=== PATIENT | female | born 1965 | race Caucasian/White ===

== ENCOUNTER 2021-10-05 08:16 | Outpatient (CLI) | payer MEDICAID, SELFPAY ==
--- NOTE | 2021-10-05 08:35 | MM_ITS ---
WS: [id number] BILATERAL SCREENING 3D TOMOSYNTHESIS DIGITAL MAMMOGRAM WITH CAD HISTORY: SCREENING COMPARISON: None available. Bilateral CC and MLO views submitted. Computer aided detection analyzed. Breast composition: There are scattered areas of fibroglandular density. No suspicious masses, microc alcifications or architectural distortion. Benign calcifications. No masses. MM/[place] [id number] IMPRESSION: BI-RADS: 2-Benign FOLLOW UP: 1 Year Follow-up
== END 2021-10-05 08:17 | disposition home or self-care (01) ==
LOC: RAD 08:20
PROVIDERS: PCP Family Medicine; Visit Provider Family Medicine
DX: Z12.31 Encounter for screening mammogram for malignant neoplasm of breast (principal)
CPT/HCPCS: 77063; 77067

== ENCOUNTER → 2021-11-21 09:04 | Outpatient (BNVA) | payer MEDICAID, SELFPAY | PROVIDERS: PCP Nurse Practitioner Family; Visit Provider Nurse Practitioner Family | DX: E11.9 Type 2 diabetes mellitus without complications (principal); I10 Essential (primary) hypertension | CPT/HCPCS: 80053; 80061; 83036; 84443; 85025 ==

== ENCOUNTER → 2021-12-11 08:51 | Outpatient (BNVA) | payer MEDICAID, SELFPAY | PROVIDERS: PCP Nurse Practitioner Family; Visit Provider Nurse Practitioner | DX: M25.531 Pain in right wrist (principal); M25.521 Pain in right elbow | CPT/HCPCS: 73080; 73110 ==

== ENCOUNTER → 2022-01-28 08:53 | Outpatient (BNVA) | payer MEDICAID, SELFPAY | PROVIDERS: PCP Nurse Practitioner Family; Visit Provider Nurse Practitioner Family | DX: E11.9 Type 2 diabetes mellitus without complications (principal); G47.00 Insomnia, unspecified; F41.9 Anxiety disorder, unspecified; E78.5 Hyperlipidemia, unspecified; E11.65 Type 2 diabetes mellitus with hyperglycemia; I10 Essential (primary) hypertension; S52.123A Displaced fracture of head of unspecified radius, initial encounter for closed fracture | CPT/HCPCS: 80061; 83036 ==

== ENCOUNTER → 2022-05-02 08:20 | Outpatient (BNVA) | payer MEDICAID, SELFPAY | PROVIDERS: PCP Nurse Practitioner Family; Visit Provider Nurse Practitioner | DX: I10 Essential (primary) hypertension (principal); E11.65 Type 2 diabetes mellitus with hyperglycemia; Z79.4 Long term (current) use of insulin | CPT/HCPCS: 80053; 80061; 83036 ==

== ENCOUNTER → 2022-05-06 09:24 | Outpatient (BNVA) | payer MEDICAID, SELFPAY | PROVIDERS: PCP Nurse Practitioner Family; Visit Provider Nurse Practitioner | DX: E11.9 Type 2 diabetes mellitus without complications (principal); F41.9 Anxiety disorder, unspecified; G47.00 Insomnia, unspecified; I10 Essential (primary) hypertension; E11.65 Type 2 diabetes mellitus with hyperglycemia; Z79.4 Long term (current) use of insulin | CPT/HCPCS: 81000 ==

== ENCOUNTER → 2022-07-29 08:31 | Outpatient (BNVA) | payer MEDICAID, SELFPAY | PROVIDERS: PCP Nurse Practitioner Family; Visit Provider Nurse Practitioner | DX: Z79.4 Long term (current) use of insulin (principal); E11.65 Type 2 diabetes mellitus with hyperglycemia | CPT/HCPCS: 80053; 80061; 83036 ==

== ENCOUNTER → 2022-08-05 08:14 | Outpatient (BNVA) | payer MEDICAID, SELFPAY | PROVIDERS: PCP Nurse Practitioner; Visit Provider Nurse Practitioner | DX: E11.65 Type 2 diabetes mellitus with hyperglycemia (principal); Z79.4 Long term (current) use of insulin | CPT/HCPCS: 81000 ==

== ENCOUNTER → 2022-08-05 09:15 | Outpatient (BNVA) | payer MEDICAID, SELFPAY | PROVIDERS: PCP Nurse Practitioner; Visit Provider Nurse Practitioner | DX: E11.65 Type 2 diabetes mellitus with hyperglycemia (principal); Z79.4 Long term (current) use of insulin; G47.00 Insomnia, unspecified; I10 Essential (primary) hypertension; F41.9 Anxiety disorder, unspecified; Z78.0 Asymptomatic menopausal state | CPT/HCPCS: 71046 ==

== ENCOUNTER → 2022-10-24 07:50 | Outpatient (BNVA) | payer MEDICAID, SELFPAY | PROVIDERS: PCP Nurse Practitioner; Visit Provider Nurse Practitioner | DX: E11.65 Type 2 diabetes mellitus with hyperglycemia (principal); Z79.4 Long term (current) use of insulin | CPT/HCPCS: 80053; 80061; 83036 ==

== ENCOUNTER → 2022-10-28 09:40 | Outpatient (BNVA) | payer MEDICAID, SELFPAY | PROVIDERS: PCP Nurse Practitioner; Visit Provider Nurse Practitioner | DX: E11.65 Type 2 diabetes mellitus with hyperglycemia (principal); G47.00 Insomnia, unspecified; M79.2 Neuralgia and neuritis, unspecified; I10 Essential (primary) hypertension; Z98.890 Other specified postprocedural states; F41.9 Anxiety disorder, unspecified; R00.0 Tachycardia, unspecified; Z79.4 Long term (current) use of insulin | CPT/HCPCS: 81000 ==

== ENCOUNTER → 2022-10-29 15:54 | Outpatient (BNVA) | payer MEDICAID, SELFPAY | PROVIDERS: PCP Nurse Practitioner; Visit Provider Podiatrist Foot & Ankle Surgery | DX: S82.832A Other fracture of upper and lower end of left fibula, initial encounter for closed fracture (principal); W19.XXXA Unspecified fall, initial encounter; E11.65 Type 2 diabetes mellitus with hyperglycemia; Z79.4 Long term (current) use of insulin | CPT/HCPCS: 73610 ==

== ENCOUNTER 2022-10-29 16:22 | Outpatient (CLI) | payer MEDICAID, SELFPAY | END 2022-10-29 16:23 | disposition home or self-care (01) | LOC: SPT 16:23 | PROVIDERS: PCP Nurse Practitioner; Visit Provider Podiatrist Foot & Ankle Surgery | DX: Z46.89 Encounter for fitting and adjustment of other specified devices (principal); S82.892D Other fracture of left lower leg, subsequent encounter for closed fracture with routine healing; X58.XXXD Exposure to other specified factors, subsequent encounter | CPT/HCPCS: 97760; 99204; L1902 ==

== ENCOUNTER 2022-11-11 12:02 | Outpatient (CLI) | payer MEDICAID, SELFPAY ==
--- NOTE | 2022-11-11 12:07 | XR_ITS ---
WS: [email or web address] SCREENING DEXA SCAN [employer] CLINICAL INFORMATION: Z78.0 - Asymptomatic menopausal state FINDINGS: The L1-L4 bone mineral density measures 0.864 g/cm2. This corresponds to a T score score of -2.6 and Z score of -1.8. Left femoral neck bone mineral density measures 0.928 g/cm2. This corresponds to a T score of -0.6 an d Z score of 0.0. Right femoral neck bone mineral density measures 0.908 g/cm2. This corresponds to a T score -0.8of an d Z score of -0.1. Mean femoral neck bone mineral density measures 0.918 g/cm2. This corresponds to a T score of -0.7 an d Z score of 0.0. XR/XR DEXA axial skeleton* [id number] IMPRESSION: Osteoporosis lumbar spine. Normal bone mineralization femoral necks. Patient's FRAX calculated 10 year probability for major osteoporotic fracture i s 5.5 % and osteoporotic hip fracture is 0.2%.
--- NOTE | 2022-11-11 12:07 | MM_ITS ---
WS: [email or web address] BILATERAL 3D TOMOSYNTHESIS DIGITAL SCREENING MAMMOGRAPHY WITH CAD CLINICAL INFORMATION: Z12.39 - Encounter for other screening for malignant neop... HISTORY: Screening mammogram. No current complaints. COMPARISON: October 05, 2021 TECHNIQUE: Bilateral CC and MLO views. FINDINGS: Scattered fibroglandular densities bilaterally. Progressed asymmetric density inferior quadrant LEFT breast along the posterior nipple line measuring 9 mm. This is only well visualized on the MLO view. Recommend spot compression views and ultrasound if persistent. Punctate and lucent centered calcifications. RIGHT breast is unchanged. MM/[place] [id number] IMPRESSION: BI-RADS: 0-Incomplete: Need additional imaging evaluation FOLLOW UP: Need Additional Imaging Recommend LEFT breast diagnostic mammography with spot compression views and ul trasound if persistent.
== END 2022-11-11 12:03 | disposition home or self-care (01) ==
LOC: RAD 12:04
PROVIDERS: PCP Nurse Practitioner; Visit Provider Nurse Practitioner
DX: Z12.31 Encounter for screening mammogram for malignant neoplasm of breast (principal); Z13.820 Encounter for screening for osteoporosis; M81.8 Other osteoporosis without current pathological fracture; Z78.0 Asymptomatic menopausal state
CPT/HCPCS: 77063; 77067; 77080

== ENCOUNTER → 2022-11-13 15:17 | Outpatient (BNVA) | payer MEDICAID, SELFPAY | PROVIDERS: PCP Nurse Practitioner; Visit Provider Podiatrist Foot & Ankle Surgery | DX: S82.832A Other fracture of upper and lower end of left fibula, initial encounter for closed fracture (principal); W19.XXXA Unspecified fall, initial encounter; E11.65 Type 2 diabetes mellitus with hyperglycemia; Z79.4 Long term (current) use of insulin | CPT/HCPCS: 73610; 99213 ==

== ENCOUNTER 2022-12-09 13:37 | Outpatient (CLI) | payer MEDICAID, SELFPAY ==
--- NOTE | 2022-12-09 13:45 | MM_ITS ---
WS: [id number] LEFT 3D TOMOSYNTHESIS DIGITAL MAMMOGRAPHY WITH CAD CLINICAL INFORMATION: ABNORMAL MAMMO HISTORY: Additional views COMPARISON: November 11, 2022 TECHNIQUE: 2 views of the left breast were obtained. FINDINGS: Scattered fibroglandular densities of the left breast. Persistent 8-9 mm ovoid density lower inner quadrant LEFT breast. Ultrasound described below. ULTRASOUND BREAST LEFT TECHNIQUE: Ultrasound left breast focused area of concern. CLINICAL INFORMATION: ABNORMAL MAMMO FINDINGS: Ultrasound LEFT breast 6 to 9:00 position. No suspicious abnormalities. Incidental simple cyst at the 6 clock position measuring 3.5 x 4.8 x 2.8 mm. No suspicious lesions to target for biopsy. Recommend return to annual screening mammography. MM/[place] [id number] IMPRESSION: BI-RADS: 2-Benign FOLLOW UP: 1 Year Follow-up Recommend return to annual screening mammography.
== END 2022-12-09 13:38 | disposition home or self-care (01) ==
PROVIDERS: PCP Nurse Practitioner; Visit Provider Nurse Practitioner
DX: R92.8 Other abnormal and inconclusive findings on diagnostic imaging of breast (principal); N60.02 Solitary cyst of left breast
CPT/HCPCS: 76642; 77061; G0279

== ENCOUNTER → 2023-01-16 08:02 | Outpatient (BNVA) | payer MEDICAID, SELFPAY | PROVIDERS: PCP Nurse Practitioner; Visit Provider Nurse Practitioner | DX: E11.65 Type 2 diabetes mellitus with hyperglycemia (principal); Z79.4 Long term (current) use of insulin | CPT/HCPCS: 80053; 80061; 81000; 83036; 84443 ==

== ENCOUNTER → 2023-04-09 08:03 | Outpatient (BNVA) | payer MEDICAID, SELFPAY | PROVIDERS: PCP Nurse Practitioner; Visit Provider Nurse Practitioner | DX: E11.65 Type 2 diabetes mellitus with hyperglycemia (principal); Z79.4 Long term (current) use of insulin | CPT/HCPCS: 80053; 80061; 81000; 83036; 84443; 85025 ==

== ENCOUNTER → 2023-07-04 08:57 | Outpatient (BNVA) | payer MEDICAID, SELFPAY | PROVIDERS: PCP Nurse Practitioner; Visit Provider Nurse Practitioner | DX: E11.65 Type 2 diabetes mellitus with hyperglycemia (principal); Z79.4 Long term (current) use of insulin; I10 Essential (primary) hypertension; E78.5 Hyperlipidemia, unspecified | CPT/HCPCS: 80053; 80061; 83036; 84443 ==

== ENCOUNTER → 2023-07-08 09:25 | Outpatient (BNVA) | payer MEDICAID, SELFPAY | PROVIDERS: PCP Nurse Practitioner; Visit Provider Nurse Practitioner | DX: E11.65 Type 2 diabetes mellitus with hyperglycemia; Z79.4 Long term (current) use of insulin; M81.0 Age-related osteoporosis without current pathological fracture; F41.9 Anxiety disorder, unspecified; G47.00 Insomnia, unspecified; R00.0 Tachycardia, unspecified; I10 Essential (primary) hypertension; M79.2 Neuralgia and neuritis, unspecified; E03.8 Other specified hypothyroidism; M25.521 Pain in right elbow; G89.29 Other chronic pain | CPT/HCPCS: 81000 ==

== ENCOUNTER → 2023-09-25 07:57 | Outpatient (BNVA) | payer MEDICAID, SELFPAY | PROVIDERS: PCP Nurse Practitioner; Visit Provider Nurse Practitioner | DX: E03.8 Other specified hypothyroidism (principal); E11.65 Type 2 diabetes mellitus with hyperglycemia; Z79.4 Long term (current) use of insulin; E11.9 Type 2 diabetes mellitus without complications; Z79.899 Other long term (current) drug therapy | CPT/HCPCS: 80053; 80061; 81000; 83036; 84443; 85025 ==

== ENCOUNTER 2023-10-09 20:01 | Emergency (ER) | payer MEDICAID, SELFPAY ==
[2023-10-09 20:11] VITALS: BP 108/73; PULSE 99; RESP 14; TEMP 36.4; O2SAT 99
[2023-10-09 20:42] LABS: Basophils # 0.1 10^3/uL (0.0-0.1); Basophils % 0.4 %; Eosinophils % 0.1 %; Hematocrit 43.1 % (36-47); Lymphocytes # 1.9 10^3/uL (0.8-4.8); Lymphocytes % 12.8 %; Mean Corpuscular HGB Conc 33.9 g/dL (30-55); Mean Corpuscular Volume 88.7 fl (85-98); Mean Platelet Volume 9.7 fL (7.4-10.4); Monocytes % 6.7 %; Neutrophils # 12.03 10^3/uL (1.8-7.7); Neutrophils % 79.7 %; Nucleated Red Blood Cells % 0 %; Platelet Count 357 10^3/cmm (157-399); Red Blood Count 4.86 10^6/uL (3.85-5.65); Red Cell Distribution Width 13.8 % (12.1-15.1); White Blood Count 15.09 10^3/uL (3.29-11.43)
[2023-10-09] MEDS: ondansetron 2 mg/ML SDV 2 mL 4 MG IVP (20:50)
[2023-10-09 20:59] LABS: Alanine Aminotransferase 15 U/L (0-33); Albumin Level 4.3 g/dL (3.5-5.2); Alkaline Phosphatase 94 U/L (35-105); Anion Gap 17.8 (5-19); Aspartate Amino Transferase 19 U/L (0-32); Blood Urea Nitrogen 16 mg/dL (6-20); Calcium 9.7 mg/dL (8.5-10.5); Carbon Dioxide 22 mmol/L (22-29); Chloride 103 mmol/L (98-107); Creatinine Clr Calc Pharmacy 61.7002; Globulin 3.9 g/dL (1.3-4.6); Glucose 166 mg/dL (65-115); Lipase 44 U/L (13-60); Osmolality Calculated 293 mOsm/kg (285-295); Potassium 3.8 mmol/L (3.5-5.1); Sodium 139 mmol/L (136-145); Total Bilirubin 0.4 mg/dL (0.15-1.2); Total Protein 8.2 g/dL (6.6-8.7)
[2023-10-09 21:01] VITALS: BP 102/72; PULSE 90; RESP 16; O2SAT 95
--- NOTE | 2023-10-09 21:22 | CTR_ITS ---
PROCEDURE INFORMATION: Exam: CT Abdomen And Pelvis Without Contrast Exam date and time: 10/09/2023 9:28 PM Age: 57 years old Clinical indication: Abdominal pain; Flank; Right; Prior surgery; Surgery date: 6+ months; Surgery type: Tubal; Additional info: Right flank pain TECHNIQUE: Imaging protocol: Computed tomography of the abdomen and pelvis without contrast. Radiation optimization: All CT scans at this facility use at least one of these dose optimization techniques: automated exposure control; mA and/or kV adjustment per patient size (includes targeted exams where dose is matched to clinical indication); or iterative reconstruction. COMPARISON: CR XR chest 2V* [id number] 08/05/2022 9:17 AM RADIATION DOSE METRICS: Total DLP (mGy-cm): 348.37 FINDINGS: Liver: Normal. No mass. Gallbladder and bile ducts: Normal. No calcified stones. No ductal dilation. Pancreas: Normal. No ductal dilation. Spleen: Normal. No splenomegaly. Adrenal glands: Normal. No mass. Kidneys and ureters: There is a 0.7 cm calcification in the distal right ureter resulting in moderate right hydroureteronephrosis. There is edema of the right kidney. No hydronephrosis on the left. Stomach and bowel: Unremarkable. No obstruction. No mucosal thickening. Appendix: No evidence of appendicitis. Intraperitoneal space: Unremarkable. No free air. No significant fluid collection. Vasculature: Unremarkable. No abdominal aortic aneurysm. Lymph nodes: Unremarkable. No enlarged lymph nodes. Urinary bladder: Unremarkable as visualized. Reproductive: Unremarkable as visualized. Bones/joints: Degenerative change is identified in the spine. There is no evidence for acute fracture or malalignment. Soft tissues: Unremarkable. CT/CT kidney stone [id number] IMPRESSION: There is a 0.7 cm calcification in the distal right ureter resulting in moderate right hydroureteronephrosis.
--- NOTE | 2023-10-09 21:23 | ED_ITS ---
HPI - Back Pain/Injury 2 General: Chief Complaint: Back Pain/Injury Stated Complaint: Back Pain Time Seen by Provider: 10/09/23 20:56 History of Present Illness: 57-year-old female presents emergency de partment with complaints of right flank pain that radiates to the right lower quadrant of her abdomen worsening over the previous 2 days. She does have associated nausea and vomiting. She denies fevers chills or night sweats. She denies known injury. She states when her pain occurs it is a 6 out of 10 sharp and stabbing and intermittent. Associated symptoms: Reports abdominal pain, nausea, urinary urgency and vomiting Review of Systems 2 General: Reports: 10 or more systems reviewed and unremarkable except in HPI and below GI: Reports: abdominal pain, nausea and vomiting : Reports: flank pain, urinary frequency and urinary urgency PFSH ED 2 PFSH: Medical History Chronic pain of right elbow Adult onset hypothyroidism Age related osteoporosis Insomnia Diabetes mellitus with hyperglycemia, with long-term current use of insulin Anxiety Chronic migraine Hyperlipidemia Essential hypertension Type 2 diabetes mellitus Surgical History History of strabismus surgery Right eye 2021 Hx of cataract surgery both eyes Hx of eye surgery right eye Hx of tubal ligation Hx of tonsillectomy History of hernia surgery Family History Other Adopted Social History Smoking and tobacco/nicotine status: former use of tobacco/nicotine Second hand smoke exposure: No Alcohol intake: never Substance/Drug Use: never Adopted: No Caregiver/support person: No Lives independently: Yes Household members: significant other Housing: Apartment Marital status: Single Number of children: 2 Highest education level completed: High School Graduate service: No Current occupational status: unemployed Physical Exam 2 Narrative: EXAM NARRATIVE: General: Alert, no acute distress. Skin: Warm, dry, Intact. Head: Normocephalic, atraumatic. Neck: Supple, trachea midline. Eye: Extraocular movements are intact. PERRLA Ears, nose, mouth and throat: mucosa moist. Cardiovascular: Regular, Normal peripheral perfusion. Respiratory: Lungs are clear to auscultation, respirations are non-labored, breath sounds are equal, Symmetrical chest wall expansion. Gastrointestinal: Soft, Nontender, Non distended, Normal bowel sounds. Musculoskeletal: Normal ROM, no deformity. Neurological: Alert and oriented, No focal neurological deficit observed. Psychiatric: Cooperative, appropriate mood & affect. Back: Right CVA tenderness, normal alignment. Course 2 Vital Signs: Vital signs: Vital Signs Temperature 97.5 F L 10/09/23 20:11 Pulse Rate 66 10/09/23 22:10 Respiratory Rate 18 10/09/23 22:10 Blood Pressure 101/78 10/09/23 22:10 Pulse Oximetry 97 10/09/23 22:10 Oxygen Delivery Me thod Room Air 10/09/23 20:11 MDM - Back Pain/Injury Medical Decision Making Physical exam completed and documented, I will obtain laboratory evaluation to include a CBC, CMP, lipase, urinalysis, and a CT scan of the patient's abdomen pelvis to evaluate for possible differential diagnosis of bowel obstruction, incarcerated hernia, abdominal wall strain, abdominal wall hematoma, constipation, pyelonephritis, renal calculi, renal colic Medical Records I reviewed the patient's medical records. Labs I reviewed the patient's lab results. 10/09/23 20:24 10/09/23 20:24 Radiology Impressions Abdomen/Pelvis CT 10/09/23 21:22 IMPRESSION: There is a 0.7 cm calcification in the distal right ureter resulting in moderate right hydroureteronephrosis. Laboratory Results WBC 15.09 10^3/uL (3.29-11.43) H 10/09/23 20:24 RBC 4.86 10^6/uL (3.85-5.65) 10/09/23 20:24 Hgb 14.60 g/dL (11.27-16.99) 10/09/23 20:24 Hct 43.1 % (36-47) 10/09/23 20:24 MCV 88.7 fl (85-98) 10/09/23 20:24 MCH 30.0 pg (27-33) 10/09/23 20: MCHC 33.9 g/dL (30-55) 10/09/23 20:24 RDW 13.8 % (12.1-15.1) 10/09/23 20:24 Plt Count 357 10^3/cmm (157-399) 10/09/23 20:24 MPV 9.7 fL (7.4-10.4) 10/09/23 20:24 Neut % (Auto) 79.7 % 10/09/23 20:24 Lymph % (Auto) 12.8 % 10/09/23 20:24 [place] % (Auto) 6.7 % 10/09/23 20:24 Eos % (Auto) 0.1 % 10/09/23 20:24 Baso % (Auto) 0.4 % 10/09/23 20:24 Neut # (Auto) 12.03 10^3/uL (1.8-7.7) H 10/09/23 20:24 Lymph # (Auto) 1.9 10^3/uL (0.8-4.8) 10/09/23 20:24 [place] # (Auto) 1.0 10^3/uL (0.2-0.9) H 10/09/23 20:24 Eos # (Auto) 0.0 10^3/uL (0.0-0.8) 10/09/23 20:24 Baso # (Auto) 0.1 10^3/uL (0.0-0.1) 10/09/23 20:24 Nucleated RBC % (auto) 0 % 10/09/23 20:24 Nucleated RBCs # 0.0 /100WBC 10/09/23 20:24 Sodium 139 mmol/L (136-145) 10/09/23 20:24 Potassium 3.8 mmol/L (3.5-5.1) 10/09/23 20:24 Chloride 103 mmol/L (98-107) 10/09/23 20:24 Carbon Dioxide 22 mmol/L (22-29) 10/09/23 20:24 Anion Gap 17.8 (5-19) 10/09/23 20:24 BUN 16 mg/dL (6-20) 10/09/23 20:24 Creatinine 0.9 mg/dL (0.5-0.9) 10/09/23 20:24 GFR Calculation 65.0 mL/min (90-130) L 10/09/23 20:24 Glucose 166 mg/dL (65-115) H 10/09/23 20:24 Calculated Osmolality 293 mOsm/kg (285-295) 10/09/23 20:24 Lactic Acid 2.0 mmol/L (0.5-2.2) 10/09/23 20:34 Calcium 9.7 mg/dL (8.5-10.5) 10/09/23 20:24 Total Bilirubin 0.4 mg/dL (0.15-1.2) 10/09/23 20:24 AST 19 U/L (0-32) 10/09/23 20:24 ALT 15 U/L (0-33) 10/09/23 20:24 Alkaline Phosphatase 94 U/L (35-105) 10/09/23 20:24 Total Protein 8.2 g/dL (6.6-8.7) 10/09/23 20:24 Albumin 4.3 g/dL (3.5-5.2) 10/09/23 20:24 Globulin 3.9 g/dL (1.3-4.6) 10/09/23 20:24 Lipase 44 U/L (13-60) 10/09/23 20:24 Procalcitonin 0.09 ng/mL (0-0.5) 10/09/23 20:34 Urine Color Light yellow (Yellow) 10/09/23 21:00 Urine Appearance Cloudy (CLEAR) A 10/09/23 21:00 Urine pH 5 (5-7) 10/09/23 21:00 Ur Specific [place] 1.020 (1.005-1.030) 10/09/23 21:00 Urine Protein Trace (Negative) 10/09/23 21:00 Urine Glucose (UA) 4+ (Normal) H 10/09/23 21:00 Urine Ketones 1+ (Negative) H 10/09/23 21:00 Urine Blood 3+ (Negative) H 10/09/23 21:00 Urine Nitrate Negative (Negative) 10/09/23 21:00 Urine Bilirubin 1+ (Negative) H 10/09/23 21:00 Urine Urobilinogen Neg mg/dL (Negative) 10/09/23 21:00 Ur Leukocyte Esterase 2+ (Negative) H 10/09/23 21:00 Urine RBC 40-50 /hpf (0-2) H 10/09/23 21:00 Urine WBC 25-40 /hpf (0-5) H 10/09/23 21:00 Ur Squamous Epith Cells 10-15 /hpf (0-5) H 10/09/23 21:00 Amorphous Sediment 1+ /hpf 10/09/23 21:00 Urine Bacteria 2+ /hpf (NONE) H 10/09/23 21:00 Urine Mucus 3+ /hpf 10/09/23 21:00 All radiology interpretation(s) finalized by discharge Discharge Plan Discharge Patient Disposition: Home Clinical Impression: Renal calculus, right Leukocytosis Qualifiers: Leukocytosis type: unspecified Qualified Code(s): D72.829 - Elevated white blood cell count, unspecified Nausea & vomiting Qualifiers: Vomiting type: unspecified Qualified Code(s): R11.2 - Nausea with vomiting, unspecified Urinary tract infection Qualifiers: Urinary tract infection type: acute cystitis Hematuria presence: with hematuria Qualified Code(s): N30.01 - Acute cystitis with hematuria Condition: Stable Prescriptions: New nitrofurantoin monohyd/m-cryst [Macrobid] 100 mg capsule 100 mg PO Q12H 7 Days Qty: 14 0RF Rx Instructions: must administer with a meal/food ondansetron HCl 4 mg tablet 4 mg PO Q6H PRN (Reason: nausea and vomiting) Qty: 14 0RF tamsulosin [Flomax] 0.4 mg capsule 0.4 mg PO DAILY Qty: 10 0RF naproxen 500 mg tablet 500 mg PO Q12H PRN (Reason: pain) Qty: 20 0RF No Action naloxone 4 mg/actuation spray,non-aerosol 4 mg intranasal Q2M PRN Rx Instructions: spray 1 dose into ONE nostril; alternate nostrils w each dose until help arrives (DME) pen needle, diabetic [Comfort EZ Pen [place]] 33 gauge x 5/32 needle See Rx Instructions .Route Qty: 100 3RF Rx Instructions: once daily (DME) OneTouch Ultra Test Strip See Rx Instructions .Route Qty: 100 5RF Rx Instructions: use 3 times as needed (DME) lancets [OneTouch Delica Plus Lancet] 33 gauge misc See Rx Instructions .Route Qty: 100 5RF Rx Instructions: use 3 times day as needed metoprolol succinate [Toprol XL] 25 mg tablet extended release 24 hr 25 mg PO .at beditme Qty: 30 2RF losartan 25 mg tablet 12.5 mg PO DAILY Qty: 16 2RF Hold Instructions: Monitor blood pressure and engery rizatriptan 10 mg tablet 10 mg PO Q2H PRN (Reason: migraine headache) Qty: 9 2RF Rx Instructions: do not exceed 3 doses per 24 hrs (DME) ASO See Rx Instructions .Route .MEDSUPPLY Qty: 1 0RF Rx Instructions: As directed atorvastatin 10 mg tablet 10 mg PO DAILY Qty: 30 2RF calcium carbonate-vitamin D3 [Os-Juan 500 + D3] 500 mg-5 mcg (200 unit) tablet 1 tab PO BID Qty: 60 2RF Farxiga 10 mg tablet 10 mg PO DAILY Qty: 30 2RF ibandronate 150 mg tablet 150 mg PO .monthly Qty: 1 2RF insulin detemir U-100 100 unit/mL (3 mL) insulin pen 35 unit SUBCUT DAILY Qty: 15 1RF levothyroxine 25 mcg tablet 25 mcg PO .at bedtime no food Qty: 30 2RF Ozempic 2 mg/dose (8 mg/3 mL) pen injector 2 mg SUBCUT .weekly Qty: 3 2RF tramadol 50 mg tablet 50 mg PO Q12H Qty: 60 2RF topiramate [Topamax] 100 mg tablet See Rx Instructions PO .COMPLEX Qty: 60 2RF Rx Instructions: 50mg AM and 150mg PM orally; venlafaxine [Effexor XR] 75 mg capsule,extended release 24hr 75 mg PO .in evening Qty: 30 2RF (DME) blood-glucose meter [OneTouch Ultra2 Meter] Kit See Rx Instructions .Route Qty: 1 0RF Rx Instructions: As directed Discharge Orders: Discharge ED (Routine); Ordered 10/09/23 Ordered By: Deandre Germain Referrals: Baljit Goldman, TRIAGE LICENSED PRACTICAL NURSE-C [Primary Care Provider] - Discharge Diet: Usual diet Discharge Activity: Resume usual activity Patient Instructions: Opioid Safety, Pain Management Activity Restrictions/Additional Instructions: Activity Restrictions/Additional Instructions: Thank you for choosing [facility] for your healthcare needs today. Please realize that you were seen in the Emergency Department and that we are providing you with an emergency medical screening exam and this may not be a complete and all inclusive of all the testing and or medical work-up that you may need to determine your ailment or severity of your illness. It is very important that you follow-up as instructed with your Primary care provider or Specialist for additional evaluation and to discuss your medical treatment plan. [facility] [address] [place] [address] Dr.ive Germain [place], [place] [address] Phone--[phone] Call to make a Follow-up appointment: [facility] [address] [place] [address] Coding Level of Care Code ED Bank Secrecy Act Officer for Cass Fernandez
[2023-10-09 21:33] LABS: Add Urine Microscopic? YES; Bilirubin Urine 1+ (Negative); Blood Urine 3+ (Negative); Glucose Urine UA 4+ (Normal); Ketones Urine 1+ (Negative); Leukocyte Esterase Urine 2+ (Negative); Nitrate Urine Negative (Negative); Protein Urine Trace (Negative); Urine Appearance Cloudy (CLEAR); Urine Color Light yellow (Yellow); Urobilinogen Urine Neg (Negative); pH Urine 5 (5-7)
[2023-10-09 21:34] LABS: Add Urine Culture? No; Amorphous Sediment Urine 1+ /hpf; Bacteria Urine 2+ /hpf; Mucus Urine 3+ /hpf; RBC Urine 40-50 /hpf (0-2); WBC Urine 25-40 /hpf (0-5)
[2023-10-09] MEDS: sodium chloride 0.9% 1,000 ML 999 ML IV (22:03)
[2023-10-09] MEDS: ketorolac 30 mg/mL INJ IVP (22:03)
[2023-10-09] MEDS: cefTRIAXone 1,000 MG in sodium chloride 0.9% (plus) 50 ML 100 MG IV (22:03)
[2023-10-09 22:10] VITALS: BP 101/78; PULSE 66; RESP 18; O2SAT 97
[2023-10-09 22:12] LABS: Procalcitonin 0.09 ng/mL (0-0.5)
[2023-10-09] MEDS: tamsulosin 0.4 mg Capsule 0.400000000000000022 MG PO (22:56)
== END 2023-10-09 23:01 | disposition home or self-care (01) ==
PROVIDERS: Emergency Medicine; Emergency Provider Internal Medicine; PCP Nurse Practitioner
DX: N30.01 Acute cystitis with hematuria (principal); N13.2 Hydronephrosis with renal and ureteral calculous obstruction; D72.829 Elevated white blood cell count, unspecified; R11.2 Nausea with vomiting, unspecified; Z79.4 Long term (current) use of insulin; Z79.85 Long-term (current) use of injectable non-insulin antidiabetic drugs; Z87.891 Personal history of nicotine dependence; E11.9 Type 2 diabetes mellitus without complications; E78.5 Hyperlipidemia, unspecified; I10 Essential (primary) hypertension
CPT/HCPCS: 36415; 74176; 80053; 81001; 83605; 83690; 84145; 85025; 96365; 96375; 99285; J0696; J1885; J2405; J7030

== ENCOUNTER → 2023-10-15 08:51 | Outpatient (BNVA) | payer MEDICAID, SELFPAY | PROVIDERS: PCP Nurse Practitioner; Visit Provider Nurse Practitioner | DX: N30.01 Acute cystitis with hematuria (principal); K59.04 Chronic idiopathic constipation | CPT/HCPCS: 85025 ==

== ENCOUNTER → 2023-10-16 10:10 | Outpatient (BNVA) | payer MEDICAID, SELFPAY | PROVIDERS: PCP Nurse Practitioner; Visit Provider Nurse Practitioner | DX: N30.01 Acute cystitis with hematuria (principal); N20.0 Calculus of kidney; K59.04 Chronic idiopathic constipation | CPT/HCPCS: 74018; 81000 ==

== ENCOUNTER 2023-11-21 08:11 | Outpatient (CLI) | payer MEDICAID, SELFPAY ==
--- NOTE | 2023-11-21 09:00 | MM_ITS ---
WS: [email or web address] VIEWS: MLO and CC views both breasts. 3D digital tomosynthesis is also included in this exam. Comparison made with prior exam of 11/11/2022 and 10/05/2021.. Findings: There was no sign of mass, architectural distortion or suspicious calcification in either breast. The re are scattered areas of fibroglandular density MM/[place] [id number] Impression: BI-RADS: 2-Benign finding. FOLLOW-UP: 1 Year Follow-up This mammogram was also analyzed by the Computer Aided Detection System R2 Imag e Data Processing Consultant.
== END 2023-11-21 08:12 | disposition home or self-care (01) ==
LOC: RAD 08:11
PROVIDERS: PCP Nurse Practitioner; Visit Provider Nurse Practitioner
DX: Z12.31 Encounter for screening mammogram for malignant neoplasm of breast (principal)
CPT/HCPCS: 77063; 77067

== ENCOUNTER → 2023-12-19 08:42 | Outpatient (BNVA) | payer MEDICAID, SELFPAY | PROVIDERS: PCP Nurse Practitioner; Visit Provider Nurse Practitioner | DX: E03.8 Other specified hypothyroidism (principal); E11.65 Type 2 diabetes mellitus with hyperglycemia; Z79.4 Long term (current) use of insulin | CPT/HCPCS: 80053; 80061; 81000; 83036; 84443; 85025 ==

== ENCOUNTER → 2024-03-08 07:55 | Outpatient (BNVA) | payer MEDICAID, SELFPAY | PROVIDERS: PCP Nurse Practitioner; Visit Provider Nurse Practitioner | DX: E11.9 Type 2 diabetes mellitus without complications (principal); E03.8 Other specified hypothyroidism | CPT/HCPCS: 80053; 80061; 81000; 82607; 83036; 84443; 85025 ==

== ENCOUNTER → 2024-05-24 08:28 | Outpatient (BNVA) | payer MEDICAID, SELFPAY | PROVIDERS: PCP Nurse Practitioner; Visit Provider Nurse Practitioner | DX: E11.9 Type 2 diabetes mellitus without complications (principal); E11.65 Type 2 diabetes mellitus with hyperglycemia; Z79.4 Long term (current) use of insulin | CPT/HCPCS: 80053; 80061; 81000; 82607; 83036; 84443 ==

== ENCOUNTER → 2024-08-19 10:59 | Outpatient (BNVA) | payer MEDICAID, SELFPAY | PROVIDERS: PCP Nurse Practitioner; Visit Provider Registered Nurse Neonatal Intensive Care | DX: S40.022A Contusion of left upper arm, initial encounter (principal); S52.502A Unspecified fracture of the lower end of left radius, initial encounter for closed fracture; X58.XXXA Exposure to other specified factors, initial encounter | CPT/HCPCS: 73090 ==

== ENCOUNTER → 2024-09-02 13:26 | Outpatient (BNVA) | payer MEDICAID, SELFPAY | PROVIDERS: PCP Family Medicine; Visit Provider Orthopaedic Surgery | DX: S52.502A Unspecified fracture of the lower end of left radius, initial encounter for closed fracture (principal); W19.XXXA Unspecified fall, initial encounter | CPT/HCPCS: 73090; 99204 ==

== ENCOUNTER → 2024-09-28 11:12 | Outpatient (BNVA) | payer MEDICAID, SELFPAY | PROVIDERS: PCP Family Medicine; Visit Provider Family Medicine | DX: E11.65 Type 2 diabetes mellitus with hyperglycemia (principal) | CPT/HCPCS: 80053; 83036; 84439; 84443 ==

== ENCOUNTER 2024-11-12 13:42 | Outpatient (CLI) | payer MEDICAID, SELFPAY ==
--- NOTE | 2024-11-12 14:00 | XR_ITS ---
WS: [email or web address] DEXA (DUAL ENERGY X-RAY ABSORPTIOMETRY) Bone mineral density was performed using a [employer] machine. HISTORY: osteoporosis COMPARISON: 11/11/2022 Lumbar spine BMD (L1-L4): 0.891 g/cm2 T score: -2.4 Z score: -1.4 Total hip BMD: Left: 0.878 g/cm2. T score: -1.0 Z score: -0.2 Right: 0.824 g/cm2. T score: -1.5 Z score: -0.7 10 year probability of a major osteoporotic fracture is 6.3%. Compared to the prior study from 11/11/2022. Lumbar spine bone mineral density has increased by 3.1%. Bilateral hips bone mineral density has decreased by 7.3%. XR/XR DEXA axial skeleton* [id number] IMPRESSION: OSTEOPENIA based upon the WHO classification for females. Significant increase in bone mineral density of the lumbar spine since the prio r study. Significant decrease in bone mineral density within the hips since the prior [facility].
== END 2024-11-12 13:43 | disposition home or self-care (01) ==
PROVIDERS: PCP Family Medicine; Visit Provider Family Medicine
DX: Z13.820 Encounter for screening for osteoporosis (principal); M85.80 Other specified disorders of bone density and structure, unspecified site
CPT/HCPCS: 77080

== ENCOUNTER 2024-11-25 13:22 | Outpatient (CLI) | payer MEDICAID, SELFPAY ==
--- NOTE | 2024-11-25 | MM_ITS ---
WS: [email or web address] BILATERAL SCREENING DIGITAL TOMOSYNTHESIS MAMMOGRAM WITH CAD HISTORY: ANNUAL SCREENING COMPARISON: 11/21/2023, 12/09/2022 and 10/05/2021 Bilateral CC and MLO views with tomosynthesis and synthetic mammography submitted. Computer aided detection analyzed. Breast composition: The breasts are heterogeneously dense, which may obscure small masses. No suspicious masses, microcalcifications or architectural distortion. Numerous scattered asymmetries and calcifications are benign. 9 mm mass medial inferior LEFT breast is stable over several years. MM/MM scr tomosynthesis [id number] IMPRESSION: BI-RADS: 2 - Benign FOLLOW UP: 1 Year Follow-up
== END 2024-11-25 13:23 | disposition home or self-care (01) ==
LOC: RAD 13:23
PROVIDERS: PCP Family Medicine; Visit Provider Family Medicine
DX: Z12.31 Encounter for screening mammogram for malignant neoplasm of breast (principal); R92.333 Mammographic heterogeneous density, bilateral breasts; N64.89 Other specified disorders of breast; R92.1 Mammographic calcification found on diagnostic imaging of breast; G56.31 Lesion of radial nerve, right upper limb; G56.21 Lesion of ulnar nerve, right upper limb
CPT/HCPCS: 77063; 77067; 99203

== ENCOUNTER → 2025-02-02 11:26 | Outpatient (BNVA) | payer MEDICAID, SELFPAY | PROVIDERS: PCP Family Medicine; Visit Provider Family Medicine | DX: E11.65 Type 2 diabetes mellitus with hyperglycemia (principal); E03.8 Other specified hypothyroidism; Z79.4 Long term (current) use of insulin | CPT/HCPCS: 80053; 83036; 84443 ==

== ENCOUNTER → 2025-05-02 09:14 | Outpatient (BNVA) | payer MEDICAID, SELFPAY | PROVIDERS: PCP Family Medicine; Visit Provider Family Medicine | DX: E11.65 Type 2 diabetes mellitus with hyperglycemia (principal); Z79.4 Long term (current) use of insulin | CPT/HCPCS: 80053; 83036 ==